=== PATIENT | female | born 1995 | race Two or more races ===

== ENCOUNTER 2017-02-03 21:40 | Emergency (ER) | payer SELFPAY ==
[~2017-02-03] VITALS: Ht 167.6 cm; Wt 88.9 kg
[2017-02-04 01:12] VITALS: BP 151/96
[2017-02-04] MEDS ORDERED: KETOROLAC TROMETH 60MG/2ML VIAL IM ONE (01:45)
[2017-02-04] MEDS ORDERED: HYDROcodone-ACET 10/325MG TAB PO ONE (04:15)
== END 2017-02-04 04:09 | disposition home or self-care (01) ==
LOC: ER 21:40
DX: M54.9 Dorsalgia, unspecified (principal); X58.XXXA Exposure to other specified factors, initial encounter; Y93.89 Activity, other specified; Y99.8 Other external cause status; Y92.89 Other specified places as the place of occurrence of the external cause
CPT/HCPCS: 74176; 96372; 99284; J1885

== ENCOUNTER 2017-05-14 05:57 | Emergency (ER) | payer SELFPAY ==
[~2017-05-14] VITALS: Ht 167.6 cm; Wt 89.4 kg
[2017-05-14 07:24] LABS: Basophils # (auto) 0.2 uL; Basophils % (auto) 2.3 % (0.0-2.0); Eosinophils # (auto) 0.1 uL; Eosinophils % (auto) 1.5 % (0.0-7.0); Hematocrit 43.5 % (36.0-46.0); Hemoglobin 14.6 g/dL (12.2-16.2); Lymphocytes # (auto) 2.3 uL; Lymphocytes % (auto) 31.5 % (10.0-50.0); Mean Corpuscular Hemoglobin 30.7 pg (28.0-32.0); Mean Corpuscular Hgb Conc. 33.7 g/dL (32.0-36.0); Monocytes # (auto) 0.8 uL; Monocytes % (auto) 10.9 % (0.0-12.0); Neutrophils # (auto) 3.9 uL; Neutrophils % (auto) 53.8 % (37.0-80.0); Nucleated Red Blood Cells % 0.2 %; Platelet Count (auto) 202 10^3/uL (140-450); Red Blood Cells 4.78 10^6/uL (4.0-5.20); Red Cell Distribution Width 13.1 % (11.8-14.3); White Blood Cell 7.3 10^3/uL (4.4-10.8)
[2017-05-14] MEDS: SODIUM CHLORIDE 0.9% 1,000 ML IV ONE ×2 (07:41)
[2017-05-14 07:59] LABS: Acetaminophen < 2.0 ug/mL (10-30); Salicylate < 1.7 mg/dL (2.8-20.0)
[2017-05-14 08:00] LABS: Albumin 4.1 g/dL (3.4-5.0); BUN/Creatinine Ratio 14.3; Bilirubin, Total 0.2 mg/dL (0.2-1.0); Calcium 8.7 mg/dL (8.5-10.1); Magnesium 2.4 mg/dL (1.6-2.6); Potassium 4.1 mmol/L (3.5-5.1)
[2017-05-14 09:38] VITALS: BP 119/76
== END 2017-05-14 10:28 | disposition home or self-care (01) ==
LOC: ER 05:59
DX: T43.011A Poisoning by tricyclic antidepressants, accidental (unintentional), initial encounter (principal); Y92.89 Other specified places as the place of occurrence of the external cause
CPT/HCPCS: 36415; 80053; 80320; 80329; 83735; 84702; 85025; 93005; 96360; 96361

== ENCOUNTER 2018-03-03 05:49 | Emergency (ER) | payer SELFPAY ==
[~2018-03-03] VITALS: Ht 162.6 cm; Wt 74.8 kg
[2018-03-03 05:56] VITALS: BP 135/96
== END 2018-03-03 07:40 | disposition home or self-care (01) ==
LOC: ER 05:55
DX: J20.9 Acute bronchitis, unspecified (principal)
CPT/HCPCS: 71045

== ENCOUNTER 2023-07-18 08:34 | Emergency (ER) | payer OTHER ==
[~2023-07-18] VITALS: Ht 167.6 cm; Wt 81.8 kg
[2023-07-18] MEDS ORDERED: TRAM50TA2 PO (10:24)
[2023-07-18] MEDS: HYDROcodone-ACET 10/325MG TAB PO ONE (10:40)
[2023-07-18 11:51] VITALS: BP 122/86; PULSE 18; RESP 18; O2SAT 98
== END 2023-07-18 11:54 | disposition home or self-care (01) ==
LOC: EDBD 08:34 → ER 08:34
DX: S16.1XXA Strain of muscle, fascia and tendon at neck level, initial encounter (principal); S20.212A Contusion of left front wall of thorax, initial encounter; R10.9 Unspecified abdominal pain; Z88.0 Allergy status to penicillin; Z79.899 Other long term (current) drug therapy; V98.8XXA Other specified transport accidents, initial encounter; Y93.89 Activity, other specified; Y92.89 Other specified places as the place of occurrence of the external cause; Y99.0 Civilian activity done for income or pay
CPT/HCPCS: 70450; 71046; 71101; 72125